=== PATIENT | male | born 1970 | race Caucasian/White ===

== ENCOUNTER 2018-11-19 13:00 | Emergency (ER) | payer OTHER, SELFPAY ==
[2018-11-19 13:13] VITALS: BP 137/84; PULSE 75; RESP 16; TEMP 36.4; O2SAT 97; BMI 28.0
--- NOTE | 2018-11-19 13:30 | ED_ITS ---
HPI - Skin/Abscess/Foreign Bdy <GURPREET Lopez - Last Filed: 11/19/18 22:23> General Chief complaint: Skin/Abscess/Foreign Body Stated complaint: Lump or bite in right arm pit Time Seen by Provider: 11/19/18 13:12 Source: patient Mode of arrival: ambulatory Limitations: no limitations History of Present Illness HPI narrative: A 48-year-old healthy male that is a former smoker here for c omplaint of erythema and some slight swelling to his right axillary area that he noticed this morning. He denies any trauma to the area. No drainage from the area. He denies any discomfort to the area. No fevers no chills. He denies any stressors or relievers of his symptoms. No other concerns or complaints at this timeframe. MD complaint: rash Related Data Previous Rx's Medication Instructions Recorded clindamycin HCl 300 mg PO Q8H #28 cap 11/19/18 prednisone 40 mg PO DAILY 4 Days #8 tab 11/20/18 Allergies Allergy/AdvReac Type Severity Reaction Status Date / Time No Known Drug Allergies Allergy Verified 11/19/18 13:13 Review of Systems <GURPREET Lopez - Last Filed: 11/19/18 22:23> Constitutional Denies chills, Denies fever(s), Denies lethargy and Denies weakness ENT Ears, Nose, Mouth, and Throat: Denies change in voice, Denies neck pain and Denies sore throat Cardiovascular Denies chest pain, Denies irregular heart rhythm, Denies lightheadedness, Denies palpitations, Denies dyspnea, Denies dyspnea on exertion and Denies orthopnea Respiratory Denies cough, Denies dyspnea, Denies dyspnea on exertion and Denies wheezing Gastrointestinal Gastrointestinal: Denies abdominal pain, Denies change in bowel habits, Denies diarrhea, Denies nausea and Denies vomiting Genitourinary Denies hematuria, Denies flank pain, Denies urinary incontinence and Denies urinary urgency Musculoskeletal Denies neck pain Comments: Redness to right axillary Integumentary/Breasts Denies pruritus, Denies erythema, Denies rash and Denies wounds Neurologic Denies confusion and Denies weakness Psychiatric Denies anxiety, Denies confusion, Denies depression, Denies homicidal ideation and Denies suicidal ideation Endocrine Denies palpitations Hematologic/Lymphatic Denies easy bruising Allergic/Immunologic Denies wheezing PFSH <GURPREET Lopez - Last Filed: 11/19/18 22:23> Social History lives independently: Yes Social History lives independently: Yes Exam <GURPREET Lopez - Last Filed: 11/19/18 22:23> Initial Vital Signs Initial Vital Signs: Vital Signs Temperature 97.6 F 11/19/18 13:13 Pulse Rate 75 11/19/18 13:13 Respiratory Rate 16 11/19/18 13:13 Blood Pressure 137/84 11/19/18 13:13 Pulse Oximetry 97 11/19/18 13:13 Const General: cooperative and well developed Nutritional Appearance: well nourished Orientation: alert, awake, oriented x3 and not confused HENMT Mouth: oral mucosae normal and moist mucous membranes Eyes Conjunctivae: conjunctivae normal Sclera: sclerae normal Pupils: PERRL EOM: EOM intact bilaterally Resp Effort & Inspection: normal respiratory effort, able to speak in complete sentences, no respiratory distress and no use of accessory muscles Auscultation: clear to auscultation bilaterally, no rales, no rhonchi and no wheezes Cardio Rate: regular rate Rhythm: regular rhythm Heart Sounds: no click, no gallops, no murmurs and no rubs Pulses: normal peripheral pulses Skin General: No jaundice and No petechiae Other: Erythema to the right lateral ribcage in an area approximately 9 cm in diameter just inferior to the right axillary area. No lymphadenopathy is appreciated. No tenderness on palpation. Increased temperature on palpation. Mild induration do not appreciate abscess at this time. Neuro General: alert, oriented x3, gait normal and no focal motor deficits Speech: speech normal <Elisa Andrade DO - Last Filed: 11/20/18 09:51> Initial Vital Signs Initial Vital Signs: Vital Signs Temperature 97.6 F 11/19/18 13:13 Pulse Rate 75 11/19/18 13:13 Respiratory Rate 16 11/19/18 13:13 Blood Pressure 137/84 11/19/18 13:13 Pulse Oximetry 97 11/19/18 13:13 Course <GURPREET Lopez - Last Filed: 11/19/18 22:23> Vital Signs - 8 hr 11/19/18 13:13 Temperature 97.6 F Pulse Rate 75 Respiratory Rate 16 Blood Pressure 137/84 Pulse Oximetry 97 <Elisa Andrade DO - Last Filed: 11/20/18 09:51> Vital Signs - 8 hr 11/19/18 13:13 Temperature 97.6 F Pulse Rate 75 Respiratory Rate 16 Blood Pressure 137/84 Pulse Oximetry 97 MDM - Skin/Abscess/Foreign Bdy <GURPREET Lopez - Last Filed: 11/19/18 22:23> [facility] Narrative Medical decision making narrative: Signs and symptoms presents as cellulitis to the right lateral ribcage area just inferior to the right axillary area. Do not appreciate a abscess that is drainable at this timeframe. He is placed on clindamycin. Warm moist compresses to the area a few times a day over the next few days. Follow up with primary care for the next few days for re-evaluation. For any worsening symptoms return to the emergency room or follow up sooner. Discharge Plan Departure Patient Disposition: Home Clinical Impression: Cellulitis Qualifiers: Site of cellulitis: trunk Site of cellulitis of trunk: chest wall Qualified Code(s): L03.313 - Cellulitis of chest wall Discharge Date/Time: 11/19/18 14:17 Interventions: ED Discharge Assessment Last Done: 11/19/18 14:17 Instructions: DI for Cellulitis -- Adult Activity Restrictions/Additional Instructions: Signs and symptoms presents as cellulitis to the right arm pit area which is a skin infection. Do not appreciate an abscess at this timeframe. Use warm moist compresses to that area 20 min at a time several times a day for the next few days. Your placed on an antibiotic called clindamycin use as directed. Follow up with her primary care provider in the next couple days for re-evaluation. For any worsening symptoms return emergency room or see her primary care provider sooner. Prescriptions: New clindamycin HCl 300 mg capsule 300 mg PO Q8H Qty: 28 RF: 0 No Action prednisone 20 mg tablet 40 mg PO DAILY 4 Days Qty: 8 RF: 0 <Elisa Andrade DO - Last Filed: 11/20/18 09:51> [facility] ED Attending Paigeature Attestation: I was immediately available in the department for consultation. Documentation has been reviewed. I agree with assessment and plan.
--- NOTE | 2018-11-19 14:13 | PC.NURSE ---
pt has round raised area of redness under right arm, and on upper right side . no known injury.
== END 2018-11-19 14:17 | disposition home or self-care (01) ==
PROVIDERS: Emergency Provider Nurse Practitioner Family
DX: L03.313 Cellulitis of chest wall (principal)
CPT/HCPCS: 99282; 99283

== ENCOUNTER 2018-11-20 00:50 | Emergency (ER) | payer OTHER, SELFPAY ==
[2018-11-20 01:00] VITALS: BP 129/76; PULSE 76; RESP 18; TEMP 36.3; O2SAT 98; BMI 28.0
--- NOTE | 2018-11-20 01:26 | ED.SKABFB ---
HPI - Skin/Abscess/Foreign Bdy General Chief complaint: Skin/Abscess/Foreign Body Stated complaint: swelling under left armpit Time Seen by Provider: 11/20/18 00:59 Source: patient Mode of arrival: ambulatory Limitations: no limitations History of Present Illness HPI narrative: Otherwise healthy 48-year-old male here for evaluation of redness and swelling under his left arm. He was seen here in the emergency department earlier today for with was ultimately diagnosed as cellulitis. Was sent home on clindamycin. He states he has taken 2 doses of this. He states the redness under his right arm has improved but now he has a lump and redness under the left arm. He has no new exposures. No fevers. No problems breathing. Related Data Previous Rx's Medication Instructions Recorded clindamycin HCl 300 mg PO Q8H #28 cap 11/19/18 prednisone 40 mg PO DAILY 4 Days #8 tab 11/20/18 Allergies Allergy/AdvReac Type Severity Reaction Status Date / Time No Known Drug Allergies Allergy Verified 11/19/18 13:13 Review of Systems Constitutional Denies fever(s) and Denies headache(s) ENT Ears, Nose, Mouth, and Throat: Denies headache(s) Cardiovascular Denies chest pain and Denies dyspnea Respiratory Denies dyspnea Gastrointestinal Gastrointestinal: Denies abdominal pain Musculoskeletal Denies myalgias and Denies arthralgias Integumentary/Breasts Comments: Redness under the right arm and now redness and a lump on the left arm Neurologic Denies headache(s) Hematologic/Lymphatic Denies easy bleeding and Denies easy bruising Allergic/Immunologic Denies urticaria [facility] Medical History Healthy adult (Acute) Social History lives independently: Yes Social History lives independently: Yes Exam Initial Vital Signs Initial Vital Signs: Vital Signs Temperature 97.4 F L 11/20/18 01:00 Pulse Rate 76 11/20/18 01:00 Respiratory Rate 18 11/20/18 01:00 Blood Pressure 129/76 11/20/18 01:00 Pulse Oximetry 98 11/20/18 01:00 Const General: cooperative, healthy appearing, comfortable, well developed, well groomed and No acute distress Orientation: alert, awake and oriented x3 HENMT Head: normal to inspection and normocephalic Resp Effort & Inspection: normal respiratory effort Cardio Rate: regular rate Rhythm: regular rhythm Skin Other: Patient with very faint redness under his right arm. No blistering. No vesicles. Under his left arm patient has a 6 cm x 6 cm area of fullness with overlying redness. This is soft to the touch. Does not seem to be tender to the touch. No blisters. No vesicles. 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 Neuro General: alert, awake and oriented x3 Extrem General: normal to inspection and capillary refill normal Course Orders Ordered: Discontinued Medications Prednisone (Deltasone) 40 mg PO NOW ONE Stop: 11/20/18 01:28 Last Admin: 11/20/18 01:36 Dose: 40 mg Vital Signs - 8 hr 11/20/18 01:00 Temperature 97.4 F L Pulse Rate 76 Respiratory Rate 18 Blood Pressure 129/76 Pulse Oximetry 98 MDM - Skin/Abscess/Foreign Bdy MDM Narrative Medical decision making narrative: Patient is nontoxic appearing not in any respiratory distress. Is afebrile. He showed me a picture from when he was seen in the emergency department her today and feels that it looked more like urticaria than cellulitis. I would feel that since this area has almost completely resolved after only 2 doses of antibiotics that is less likely infection or more likely a contact dermatitis. The area under his left arm is almost in the same position is the area under his right arm. This just appeared over the past several hours. This is not consistent with a abscess. It is fairly soft to the touch. Could potentially be a large lymph node however also feel like this is unlikely. I do suspect that under his left arm has again a dermatitis. Unknown new exposures or could be causing this. Will send home with a short course of steroids. He was instructed to stop taking the antibiotics. He was given return precautions. He expressed understanding and agreement plan. Discharge Plan Departure Patient Disposition: Home Clinical Impression: Rash Discharge Date/Time: 11/20/18 01:45 Interventions: ED Discharge Assessment Last Done: 11/20/18 01:15 Instructions: DI for Rash Activity Restrictions/Additional Instructions: I recommend that you stop taking the clindamycin that you were given earlier today. After re-examining your right arm I feel that a skin infection is unlikely. I do suspect that your redness today is an allergic reaction. You were given 1st dose of prednisone here. Your next dose will be later this afternoon. Return to the emergency department for any new or worsening symptoms Prescriptions: New prednisone 20 mg tablet 40 mg PO DAILY 4 Days Qty: 8 RF: 0 No Action clindamycin HCl 300 mg capsule 300 mg PO Q8H Qty: 28 RF: 0
[2018-11-20] MEDS: predniSONE 20 MG TABLET 40 MG PO (01:36)
== END 2018-11-20 01:45 | disposition home or self-care (01) ==
LOC: ED 01:38
PROVIDERS: Emergency Provider Emergency Medicine
DX: R21 Rash and other nonspecific skin eruption (principal)
CPT/HCPCS: 99282; 99283